=== PATIENT | female | born 1970 | race Caucasian/White ===

== ENCOUNTER 2023-10-21 01:53 | Emergency (ER) | payer SELFPAY ==
[~2023-10-21] VITALS: Wt 74.8 kg
[~2023-10-21 01:53] MED LIST: COVARYX PO; ELMIRON100 MG PO; FLEXERIL10 MG PO; NAPROSYN500 MG PO; VICODIN 5/500 505 MG PO
[2023-10-21 02:19] LABS: BILIRUBIN 1+ (Negative); BLOOD 2+ (Negative); CLARITY Turbid (Clear); COLOR Red (Yellow); GLUCOSE Negative (Negative); KETONE Negative (Negative); LEUKO ESTERASE 2+ (Negative); NITRITE Positive (Negative); SPECIFIC GRAVITY >= 1.030 (1.001-1.030); UROBILINOGEN 0.2 E.U./dl (0.0-1.0)
[2023-10-21 02:40] LABS: BACTERIA 1+; RBC TNTC rbc/hpf (0-2)
[2023-10-21 02:41] LABS: WBC 21-30 wbc/hpf (0-5)
[2023-10-21] MEDS ORDERED: CIPRO500 MG PO (02:50)
== END 2023-10-21 03:04 | disposition home or self-care (01) ==
LOC: ED 01:53
PROVIDERS: Internal Medicine
DX: N39.0 Urinary tract infection, site not specified (principal)